=== PATIENT | male | born 1945 | race Caucasian/White ===

== ENCOUNTER 2022-03-04 13:03 | Day surgery (SDC) | payer MEDICARE, OTHER ==
[2022-03-04] MEDS ORDERED: BUPIVACAINE 0.5% VIAL IJ ONE (13:04)
[2022-03-04] MEDS ORDERED: Depo-Medrol 40 MG/ML IM ONE (13:04)
[2022-03-04] MEDS ORDERED: DIPRIVAN 200 MG/20 ML IV ONE (14:30)
[2022-03-04] MEDS ORDERED: Lactated Ringers 1,000 ML IV ONE (16:35)
--- NOTE | 2022-03-04 16:41 | XRAY ---
Indication: Left SI joint injection. Intraoperative fluoroscopy provided for 7 seconds. 2 digital spot image submitted for interpretation demonstrates posterior needle tip projecting over the left SI joint. Correlate with intraoperative findings/report.
--- NOTE | 2022-03-04 16:41 | XRAY ---
7 seconds of fluoroscopy was used in surgery for a left sacroiliac joint injection.
== END 2022-03-04 15:25 | disposition home or self-care (01) ==
LOC: SDC-PAIN 13:03
PROVIDERS: ATTEND Psychiatry & Neurology Pain Medicine
DX: M46.1 Sacroiliitis, not elsewhere classified (principal); Z79.899 Other long term (current) drug therapy
CPT/HCPCS: 01992; 27096; 72170; 77002; 99100; G0260; J1030; J2704

== ENCOUNTER 2022-05-20 10:31 | Day surgery (SDC) | payer MEDICARE, OTHER ==
[2022-05-20] MEDS ORDERED: Depo-Medrol 40 MG/ML IM ONE (10:32)
[2022-05-20] MEDS ORDERED: BUPIVACAINE 0.5% VIAL IJ ONE (10:32)
[2022-05-20] MEDS ORDERED: Versed 2 MG/2 ML Injection ONE (10:57)
[2022-05-20] MEDS ORDERED: DIPRIVAN 200 MG/20 ML IV ONE (11:42)
--- NOTE | 2022-05-20 12:15 | XRAY ---
Indication: Left SI joint injection. Intraoperative fluoroscopy provided for 11 seconds. 2 digital spot images submitted for interpretation demonstrates posterior needle tip projecting over the left SI joint. Correlate with intraoperative findings/report.
--- NOTE | 2022-05-20 12:17 | XRAY ---
11 seconds of fluoroscopy was used in surgery for a left SI joint injection.
[2022-05-20] MEDS ORDERED: Lactated Ringers 1,000 ML IV ONE (14:02)
== END 2022-05-20 11:53 | disposition left against medical advice (07) ==
LOC: SDC-PAIN 10:31
PROVIDERS: ATTEND Psychiatry & Neurology Pain Medicine
DX: M46.1 Sacroiliitis, not elsewhere classified (principal); Z79.899 Other long term (current) drug therapy
CPT/HCPCS: 01992; 27096; 72170; 77002; 99100; G0260; J1030; J2250; J2704